=== PATIENT | male | born 1985 | race Caucasian/White ===

== ENCOUNTER 2018-12-14 07:52 | Day surgery (SDC) | payer BC ==
[~2018-12-14] VITALS: Ht 170.2 cm; Wt 78.1 kg
[2018-12-14] VITALS (12 sets, daily range): BP systolic 116–131; BP diastolic 56–83; PULSE 70–104; RESP 12–21; Ht 170.2 cm; Wt 78.1 kg
[~2018-12-14 07:52] MED LIST: ROCURONIUM 50 MG INJ ONE; SEVOFLURANE 15 MIN ONE
[2018-12-14] MEDS ORDERED: LACTATED RINGER'S 1,000 ML IV SCH (09:00)
--- NOTE | 2018-12-14 10:57 | HPN ---
Date/Time of Note Date/Time of Note DATE: 12/14/18 TIME: 10:57 Interval H&P Admission Note Pt. seen H&P reviewed: No system changes ROBERTO CARLOS COHEN M.D. December 14, 2018 10:57
[2018-12-14] MEDS ORDERED: LIDOCAINE 1%/EPI (1:100,000) (MDV) 20 ML ONE (11:02)
[2018-12-14] MEDS ORDERED: COCAINE 4% 4 ML TOP ONE (11:03)
[2018-12-14] MEDS ORDERED: NEOMYC/POLYMYX/BACIT 30 GM OINT ONE (11:03)
--- NOTE | 2018-12-14 11:29 | PREAC ---
Date/Time of Note Date/Time of Note DATE: 12/14/18 TIME: 11:27 Anesthesia Eval and Record Evaluation Time Pre-Procedure Interview DATE: 12/14/18 TIME: 11:27 Age 33 Sex male NPO: 8 hrs Preoperative diagnosis Septum deviation, Hypertrophic tonsils Planned procedure Septoplasty, Turbinate reduction Past Medical History Past Medical History: None Surgery & Anesthesia Issues No known issue Meds Anticoagulation: No Beta Marcy within 24 hr: No Reason Beta Marcy not given: Pt. not on B-Marcy No Active Prescriptions or Reported Meds Current Medications Lactated Ringer's 1,000 ml @ 25 mls/hr Q24H IV ; Start 12/14/18 at 09:00 Meds reviewed: Yes Allergies Coded Allergies: No Known Allergy (Unverified , 12/14/18) Allergies Reviewed: Yes Labs/Studies Labs Reviewed: Reviewed by anesthesiologist test: N/A Pre-procedure Exam Last vitals Vital Signs Date Temp Pulse Resp B/P (MAP) Pulse Ox O2 O2 Flow FiO2 Time Delivery Rate 12/14/18 97.8 91 16 121/72 99 Room Air 08:35 (88) Airway: Adequate mouth opening, Adequate thyromental dist Mallampati: Mallampati II Teeth: Normal Lung: Normal Heart: Normal ASA Physical Status ASA physical status: 1 Emergency: None Planned Anesthetic General/MAC: ETT Planned Pain Management Parenteral pain med Pre-operative Attestations Prior to commencing anesthesia and surgery, the patient was re-evaluated, there was verification of: *The patient's identity *The results of appropriate recent lab work and preoperative vital signs *The above evaluation not changing prior to induction *Anesthetic plan, risk benefits, alternative and complications discussed with patient/family; questions answered; patient/family understands, accepts and wishes to proceed. DIONTE CRUZ MD December 14, 2018 11:29
[2018-12-14] MEDS ORDERED: MIDAZOLAM 1 MG/ML 2 ML INJ ONE (11:30)
[2018-12-14] MEDS ORDERED: ONDANSETRON 4 MG INJ ONE ×2 (11:42→12:36)
[2018-12-14] MEDS ORDERED: GLYCOPYRROLATE 0.4 MG INJ ONE (12:38)
[2018-12-14] MEDS ORDERED: PROPOFOL 20 ML ONE (12:38)
[2018-12-14] MEDS ORDERED: NEOSTIGMINE 3 MG/3 ML SYRINGE ONE (12:38)
[2018-12-14] MEDS ORDERED: LIDOCAINE 2% (SDV) 5 ML INJ ONE (12:38)
[2018-12-14] MEDS ORDERED: CEFAZOLIN 1 GM INJ ONE (12:39)
--- NOTE | 2018-12-14 12:41 | OPR ---
Date/Time of Note Date/Time of Note DATE: 12/14/18 TIME: 12:36 Operative Report Procedure Date: December 14, 2018 Preoperative Diagnosis 1. SEPTAL DEVIATION. 2. BILATERAL NASAL TURBINATE TISSUE HYPERTROPHY. 3. CHRONIC NASAL OBSTRUCTION. Postoperative Diagnosis SAME. Operation/Procedure Performed 1. SEPTOPLASTY VIA SMR TECHNIQUE. 2. BILATERAL NASAL LASER TURBINOPLASTY USING A KTP 532 NM LASER VIA SMR. Surgeon see signature line Network Relations Consultant NONE. Anesthesia Type: general (WITH 4% 4CC COCCAINE SOLN TOPICALLY AND 1% LIDOCAINE WITH EPI 1:100,000 SOLN 15 CC. GENERAL ANESTHESIA WITH OT TUBE INTUBATION.) Estimated Blood Loss: 0 - 10 ml's Transfusion none Specimen SEPTAL CARTILAGE AND BONE. Grafts/Implants none Tubes/Drains NONE. Complications none Pt Condition Post Procedure: stable Indications TO IMPROVE BREATHING. Procedure Description SEE DICTATED REPORT. ROBERTO CARLOS COHEN M.D. December 14, 2018 12:41
--- NOTE | 2018-12-14 12:42 | PDOCDIS ---
Discharge Instructions DIAGNOSIS Discharge Diagnosis 1. SEPTAL DEVIATION. 2. BILATERAL NASAL TURBINATE TISSUE HYPERTROPHY. 3. CHRONIC NASAL OBSTRUCTION. CONDITION [id number] Patient Condition: [id number] Good HOME CARE INSTRUCTIONS: [id number] Diet Instructions: [id number] Regular ACTIVITY: [id number] Activity Restrictions: [id number] Slowly Increase Activity Rest between Activity Avoid heavy lifting Avoid Heavy Housework [id number] Bathing Restrictions: Mncit9s Tub Bath FOLLOW UP/APPOINTMENTS Follow-up Plan MY OFFICE IN 7 TO 10 DAYS. SCHOOL/WORK RELEASE May return to School/Work on: December 21, 2018 May return to School/Work with: No Restrictions ROBERTO CARLOS COHEN M.D. December 14, 2018 12:42
--- NOTE | 2018-12-14 12:51 | PAC ---
Date/Time of Note Date/Time of Note DATE: 12/14/18 TIME: 12:51 Post-Anesthesia Notes Post-Anesthesia Note Last documented vital signs Vital Signs Date Temp Pulse Resp B/P (MAP) Pulse Ox O2 O2 Flow FiO2 Time Delivery Rate 12/14/18 97.8 91 16 121/72 99 Room Air 08:35 (88) Activity: WNL Respiratory function: WNL Cardiovascular function: WNL Mental status: Baseline Pain reasonably controlled: Yes Hydration appropriate: Yes Nausea/Vomiting absent: Yes Comments BP:134/65, P:78, Spo2:100%, T:98,9 DIONTE CRUZ MD December 14, 2018 12:51
[2018-12-14] MEDS ORDERED: ALBUTEROL 0.083% (NEB) 2.5 MG/3 ML AMP ONE (12:57)
[2018-12-14] MEDS ORDERED: METOCLOPRAMIDE 10 MG INJ IV PRN (13:00)
[2018-12-14] MEDS ORDERED: ALBUTEROL 0.083% (NEB) 2.5 MG/3 ML AMP HHN PRN (13:00)
[2018-12-14] MEDS ORDERED: ONDANSETRON 4 MG INJ IV PRN (13:00)
[2018-12-14] MEDS ORDERED: MEPERIDINE 25 MG INJ IV PRN (13:00)
[2018-12-14] MEDS ORDERED: FENTAnyl 50 MCG/ML VIAL IV PRN (13:00)
[2018-12-14] MEDS ORDERED: HYDROmorphONE 1 MG/5 ML IV SYRINGE IV PRN ×2 (13:00)
[2018-12-14] MEDS ORDERED: DIPHENHYDRAMINE 50 MG INJ IV PRN (13:00)
--- NOTE | 2018-12-14 16:10 | OPR ---
DATE OF OPERATION: 12/14/2018 SURGEON: Ted Adames MD PREOPERATIVE DIAGNOSES: 1. Septal deviation. 2. Chronic nasal obstruction. 3. Bilateral nasal turbinate tissue hypertrophy. POSTOPERATIVE DIAGNOSES: 1. Septal deviation. 2. Chronic nasal obstruction. 3. Bilateral nasal turbinate tissue hypertrophy. OPERATION PERFORMED: 1. Septoplasty procedure using submucosal resection technique. 2. Bilateral laser KTP 532 nanometer laser turbinoplasty procedure using submucosal resection technique. ESTIMATED BLOOD LOSS: Less than 30 mL. COMPLICATIONS: No complications. SPECIMENS SENT TO LAB: Septal cartilage and bone. ANESTHETIC USED: General anesthesia with orotracheal tube intubation. The patient also had 4 mL of 4% cocaine topically as well as 15 mL of 1% lidocaine with epinephrine 1:100,000 using a 23-gauge spinal needle. The patient also had Ancef before the case was begun. FINDINGS DURING PROCEDURE: Severely deviated septum to the left anteriorly and to the right posteriorly without any signs of malignancies or tumors present during the procedure. The patient was also found to have papillomatous degenerative mucosal changes of the nasal turbinates bilaterally. INDICATIONS: Mr. Tamir Elmore is a 33-year-old male who has a history of chronic nasal obstruction treated with multiple nasal decongestants and steroids. The patient has failed to resolve his chronic nasal obstruction and has been found on CT scan to have a deviated septum with enlarged turbinates bilaterally. The patient is currently being considered for bilateral laser turbinoplasty procedure with septoplasty procedures indicated. Risks, benefits, and alternatives have been explained thoroughly to the patient. He understands the risks of infection, bleeding, scar formation, possible septal perforation as well as possible reaction to general and local anesthetic agents that will be used. He also understood the risks of numbness of the tip of the nose to have occurred in these cases. He signed the consent once the questions were answered. DESCRIPTION OF PROCEDURE: The patient was taken the operating room, placed on the surgical table in supine position, made comfortable by the anesthesiologist. The patient had EKG, saturation monitor and blood pressure cuff applied. At this point, the patient then was given a mask with inhalation agents and placed asleep gently. The patient had a previously started IV in the preinduction area which was infusing well. The patient was given IV sedation and placed under general anesthesia. The patient was then successfully orotracheally intubated with orotracheal tube without any complications as the orotracheal tube was taped to the right corner of the mouth. The eyes were then taped for protection. At this point, a brief time-out with patient identification and procedures entertained and all were in agreement. At this point, the patient's face was draped off in usual sterile fashion using towels and a split sheet. Wet towels were placed over the dry towels and a split sheet in preparation for laser use. At this point, the patient's nasal cavity was then inspected and found to have swollen turbinates bilaterally with papillomatous degenerative mucosal changes. The patient was also found to have left anterior and posterior right septal deviation involving the floor and the mid septal region. At this point, the nasal cavity was prepared with injections along the nasal spine area. There is also injection along the septum and the lateral dorsum of the nose through an intercartilage approach. At this point, cottonoids with cocaine were placed inside the nose. The anterior ethmoid behind the middle turbinate areas. At this point, all personnel in the operating room were asked to place on safety goggles for their protection as the KTP 532 nanometer laser was then made ready at 8 elder continuous power using a straight hand-held handpiece and a foot pedal for activation. At this point, the cottonoids were then removed as the inferior turbinate on the left side was reduced in the submucosal space using a stabbing technique in a posterior direction. The inferior turbinate was outfractured towards the medial wall of the maxillary sinus, to give greater patency of the nasal cavity. The submucosal resection was completed down to 2/3 of the septum to open the airway. The right side was done in a similar fashion. It too were reduced as the smoke was removed with the evacuator on the handpiece. The mucosal lining was noted to shrink as well as the bone during the laser process. At this point, the right inferior turbinate was outfractured towards the medial wall of the maxillary sinus as well. This ended the laser portion of the procedure. The Christy suction was used to remove blood from the nasal cavity. A hemitransfixion incision was then created with a #15 Bard- Rajeev sharp stainless steel blade on the left side of the nose. This incision was carried down through the mucosal lining down to the cartilage. A Norman elevator was then used to elevate a mucoperichondrial flap over the deviated nasal cartilage. Hemitransfixion was then completed through to the right side with care not to damage the right mucoperichondrial lining and a Poppy elevator was used to elevate a mucoperichondrial flap on the right side as well. This skeletonized the cartilage as the Maycol forceps were then used to remove the septal cartilage and bone, primarily in the inferior aspect where the deviation was present. At this point, the hemitransfixion incision was then closed using 4-0 Vicryl suture. Plication suture was used to keep the flap together to prevent hematoma formation. The patient tolerated this procedure well as bacitracin ointment was then applied to the nose to create a packing. A mustache dressing was placed beneath the nose to catch any drainage. This ended the procedure. Sponge count and instrument count correct x3. There were no complications during the procedure. Dictated By: TED MONTES/OLGA Conf#: [id number] DID#: [id number] BRUNA
== END 2018-12-14 14:40 | disposition home or self-care (01) ==
LOC: SDS 07:52
PROVIDERS: ATTEND Otolaryngology Otolaryngology/Facial Plastic Surgery
DX: J34.2 Deviated nasal septum (principal); J34.3 Hypertrophy of nasal turbinates; J34.89 Other specified disorders of nose and nasal sinuses
CPT/HCPCS: 30140; 30520; 88300; J0690; J1170; J2250; J2405; J2710; J3010; Z7512; Z7610